=== PATIENT | female | born 1975 | race Two or more races ===

== ENCOUNTER 2022-05-19 11:36 | Outpatient (CLI) | payer OTHER | END 2022-05-19 11:46 | disposition home or self-care (01) | LOC: RAD 11:36 | PROVIDERS: ATTEND Plastic Surgery | DX: Z01.818 Encounter for other preprocedural examination (principal) ==

== ENCOUNTER 2023-03-19 14:40 | Outpatient (CLI) | payer OTHER | END 2023-03-19 14:58 | disposition home or self-care (01) | LOC: RAD 14:40 | DX: Z01.811 Encounter for preprocedural respiratory examination (principal); R06.02 Shortness of breath ==